=== PATIENT | male | born 1975 | race Hispanic/Latino ===

== ENCOUNTER 2023-03-31 09:41 | Emergency (ER) | payer SELFPAY ==
[2023-03-31] MEDS ORDERED: Ketorolac Tromethamine 60 MG/2 ML VIAL ONE (10:36)
== END 2023-03-31 11:05 | disposition home or self-care (01) ==
LOC: NAV ERS 09:41
DX: S56.911A Strain of unspecified muscles, fascia and tendons at forearm level, right arm, initial encounter (principal); S46.911A Strain of unspecified muscle, fascia and tendon at shoulder and upper arm level, right arm, initial encounter; W22.8XXA Striking against or struck by other objects, initial encounter
CPT/HCPCS: 96372; J1885